=== PATIENT | male | born 1985 | race Caucasian/White ===

== ENCOUNTER 2016-08-12 03:55 | Emergency (ER) | payer OTHER ==
[~2016-08-12] VITALS: Ht 193 cm; Wt 146.5 kg
[~2016-08-12 03:55] MED LIST: BP MEDS PO; MOTRIN800 MG PO; NORCO 5/325 MG1 TAB PO; NORVASC5 MG PO; RANITIDINE300 M1 PO
[2016-08-12 04:01] VITALS: BP 132/79
--- NOTE | 2016-08-12 04:07 | NUR ---
TO ER BED 7
--- NOTE | 2016-08-12 04:08 | NUR ---
31 Y/O M W/C/O RASH ALL OVER THAT STARTED YESTERDAY. DENIES ANY FEVER, CHILLS, NAUSEA,VOMITTING OR SOB. NO S/S OF DISTRESS NOTED. ER MD MADE AWARE.
--- NOTE | 2016-08-12 04:10 | NUR ---
Marii jensen in ED - 08/12/16 at 0410 by [facility] TO ER BED 7
--- NOTE | 2016-08-12 04:10 | NUR ---
Patient being evaluated by physician at bedside.
[2016-08-12] MEDS ORDERED: diphenhydrAMINE 50 MG CAP PO ONE (04:15)
[2016-08-12] MEDS ORDERED: predniSONE 20 MG TAB PO ONE ×3 (04:15)
[2016-08-12 05:21] VITALS: BP 140/83
--- NOTE | 2016-08-12 05:21 | NUR ---
Patient discharged with v/s stable. Written and verbal after care instructions given and explained. Patient alert, oriented and verbalized understanding of instructions. Ambulatory with steady gait. All questions addressed prior to discharge. ID band removed. Patient advised to follow up with PMD OR RETURN TO ER IF CONDITION WORSENS. Rx of MEDROL AND DIPHEHYDRAMINE given. Patient educated on indication of medication including possible reaction and side effects. Opportunity to ask questions provided and answered.
== END 2016-08-12 05:21 | disposition home or self-care (01) ==
LOC: MED 03:55
DX: L50.0 Allergic urticaria (principal); K21.9 Gastro-esophageal reflux disease without esophagitis; I10 Essential (primary) hypertension
CPT/HCPCS: 99284; J7512; Q0163

== ENCOUNTER 2017-12-09 09:32 | Emergency (ER) | payer OTHER ==
[~2017-12-09] VITALS: Ht 195.6 cm; Wt 143.4 kg
[~2017-12-09 09:32] MED LIST changes: -BP MEDS PO; -MOTRIN800 MG PO; -NORCO 5/325 MG1 TAB PO; -NORVASC5 MG PO; +RANI300T35 PO; -RANITIDINE300 M1 PO
[2017-12-09 10:00] VITALS: BP 139/88
[2017-12-09] MEDS ORDERED: IBUPROFEN 400 MG TAB ONE (10:53)
[2017-12-09] MEDS: IBUPROFEN 600 MG TAB PO ONE (10:53)
[2017-12-09 12:01] VITALS: BP 130/86
== END 2017-12-09 12:01 | disposition home or self-care (01) ==
LOC: MED 09:32
DX: S93.601A Unspecified sprain of right foot, initial encounter (principal); K21.9 Gastro-esophageal reflux disease without esophagitis; I10 Essential (primary) hypertension; X58.XXXA Exposure to other specified factors, initial encounter; Y93.01 Activity, walking, marching and hiking; Y92.89 Other specified places as the place of occurrence of the external cause; Y99.8 Other external cause status
CPT/HCPCS: 29505; 73600; 73630; 99284